=== PATIENT | male | born 1965 | race Caucasian/White ===

== ENCOUNTER 2017-04-07 20:32 | Inpatient (IN) | payer OTHER ==
[~2017-04-07] VITALS: Ht 193 cm; Wt 97.7 kg
[2017-04-07 20:56] LABS: BASO % 1 % (0-3); EOS % 0 % (0-3); HEMATOCRIT 44.4 % (39.0-53.0); HEMOGLOBIN 15.5 g/dL (13.0-17.5); LYMPH # 0.8 x10^3/uL (1.0-4.8); LYMPH % 8 % (24-48); MEAN CORPUSCULAR HEMOGLOBIN 33 pg (25-35); MEAN CORPUSCULAR HGB CONC 35 g/dL (31-37); MEAN CORPUSCULAR VOLUME 94 fL (79-100); MONO % 16 % (0-9); NEUT % 75 % (31-73); PLATELET COUNT 147 x10^3/uL (140-400); RED BLOOD COUNT 4.72 x10^6/uL (4.30-5.70); RED CELL DISTRIBUTION WIDTH 13.6 % (11.5-14.5); WHITE BLOOD COUNT 9.6 x10^3/uL (4.0-11.0)
[2017-04-07 21:01] LABS: BILIRUBIN,URINE NEGATIVE (NEG); GLUCOSE,URINE NEGATIVE (NEG); NITRITE,URINE NEGATIVE (NEG); PH,URINE 7.5; PROTEIN,URINE NEGATIVE (NEG-TRACE); UROBILINOGEN,URINE 0.2 mg/dL (0.2 mg/dL)
[2017-04-07 21:07] LABS: CALCIUM 8.7 mg/dL (8.5-10.1); CREATININE 1.2 mg/dL (0.7-1.3); GFR 63.3; POTASSIUM 3.6 mmol/L (3.5-5.1)
[2017-04-07 21:10] LABS: BACTERIA,URINE 0 /HPF (0-FEW); BARBITURATES NEG (NEG); BENZODIAZEPINES POS (NEG); CANNABINOIDS NEG (NEG); COCAINE NEG (NEG); METHADONE NEG (NEG); OPIATES NEG (NEG); PHENCYCLIDINE NEG (NEG); WBC,URINE 20-40 /HPF (0-4)
[2017-04-07 21:13] LABS: ALBUMIN 3.2 g/dL (3.4-5.0); ALBUMIN/GLOBULIN RATIO 0.8 (1.0-1.7); MAGNESIUM 1.9 mg/dL (1.8-2.4); TOTAL BILIRUBIN 0.8 mg/dL (0.2-1.0); TOTAL PROTEIN 7.1 g/dL (6.4-8.2)
[2017-04-07] MEDS ORDERED: KETOROLAC 30 MG/ML INJ. IV ONE (21:15)
[2017-04-07] MEDS ORDERED: fentaNYL PF VIAL 100 MCG/2 ML VIAL IV ONE (21:15)
[2017-04-07] MEDS ORDERED: diazePAM 5 MG TABLET PO ONE (21:15)
[2017-04-07] MEDS ORDERED: ONDANSETRON PF 4 MG/2 ML VIAL. IV ONE (21:15)
[2017-04-07] MEDS ORDERED: IV NORMAL SALINE 1000ML BAG 1,000 ML IV ONE ×3 (21:15→22:00)
[2017-04-07 21:21] LABS: INR 1.2 (0.8-1.1); PROTHROMBIN TIME PATIENT 14.2 SEC (11.7-14.0)
[2017-04-07] MEDS ORDERED: ONDANSETRON PF 4 MG/2 ML VIAL. IV PRN (21:45)
[2017-04-07 21:49] LABS: OBC FLU VALID
[2017-04-07] MEDS ORDERED: LABETALOL 20 MG/4 ML DISP.SYRIN. IVP ONE (22:15)
[2017-04-07] MEDS ORDERED: CONTRAST GIVEN MC PRN (22:15)
[2017-04-07] MEDS ORDERED: ACETAMINOPHEN 500 MG TABLET PO ONE (22:15)
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
[2017-04-07] MEDS ORDERED: VANCOMYCIN 2 GM in IV NORMAL SALINE 500ML BAG 500 ML IV ONE (22:30)
[2017-04-07] MEDS ORDERED: IOHEXOL 300 MG/ML 75 ML VIAL IV ONE (22:30)
[2017-04-07 23:25] VITALS: BP 126/86
--- NOTE | 2017-04-07 23:44 | RAD ---
INDICATION: Fever and headache COMPARISON: None. TECHNIQUE: Axial CT images obtained through the head without intravenous contrast. One or more of the following individualized dose reduction techniques were utilized for this examination: 1. Automated exposure control; 2. Adjustment of the mA and/or kV according to patient size; 3. Use of iterative reconstruction technique. FINDINGS: No intracranial hemorrhage. No midline shift. Basal cisterns patent. Ventricles and sulci are unremarkable. No acute osseous abnormality. There is some bowing of the nasal septum. 1 cm lucent focus in the calvarium on the right frontally IMPRESSION: 1. No acute intracranial hemorrhage. 2. 1 cm lucent focus within the calvarium on the right frontally. Could be from causes such as a venous structure within the area but if the patient has any risk factors or history of neoplasm a follow-up could be obtained to ensure no growth to ensure there is not a more worrisome cause which is considered less common. Electronically signed by: Javier Madrigal MD (04/07/2017 11:41 PM) [facility]
--- NOTE | 2017-04-07 23:49 | RAD ---
CT ABD PELV W/ IV CONTRST ONLY dated 04/07/2017 10:45 PM Indication: Fever, abdominal pain lower abdominal pain. Comparison: No comparison is available. Technique: Contiguous axial imaging of the abdomen and pelvis performed after the administration of 75 cc Omnipaque 300. One or more of the following individualized dose reduction techniques were utilized for this examination: 1. Automated exposure control 2. Adjustment of the mA and/or kV according to patient size 3. Use of iterative reconstruction technique Findings: Limited images of lung bases are clear. Heart size within normal limits. No pleural or pericardial effusion. Liver, spleen, pancreas, adrenal glands, gallbladder and kidneys are unremarkable. No hydronephrosis. There is a well-defined low-density focus at the upper pole of right kidney that measures 8 mm in size, difficult to accurately characterize. Unopacified GI tract normal in caliber and contour. No focal bowel wall thickening. No inflammatory stranding in the mesentery. The appendix is normal in caliber. No ascites or lymphadenopathy. Moderate amount of stool throughout the colon. Images of pelvis show mild diffuse wall thickening of the urinary bladder. Mild inflammatory stranding in the pelvic fat. Prostate gland is mildly enlarged. No free pelvic fluid or pelvic lymphadenopathy. Bone windows show no acute findings. Multilevel spondylosis. IMPRESSION: 1. No acute abnormality of abdomen or pelvis. 2. Enlarged prostate gland with mild diffuse wall thickening of the urinary bladder. Mild inflammatory stranding in the pelvic fat. Findings are indeterminate and could represent acute or chronic cystitis or intermittent bladder outlet obstruction. Prostatitis is another consideration. 3. Indeterminate small low-density lesion at the upper pole right kidney. Electronically signed by: Juice Brady MD (04/07/2017 11:45 PM) [facility]
[2017-04-08] MEDS ORDERED: ZOLPIDEM 5 MG TABLET. PO PRN
[2017-04-08] MEDS: fentaNYL PF VIAL 100 MCG/2 ML VIAL IV PRN ×2 (00:02→07:59)
[2017-04-08] MEDS ORDERED: MULT1TAB52 PO (01:27)
[2017-04-08] MEDS ORDERED: CLOT15CR4 TP (01:27)
[2017-04-08] MEDS ORDERED: HALO10TA PO (01:27)
[2017-04-08] MEDS ORDERED: THIA100T8 PO (01:27)
[2017-04-08] MEDS ORDERED: QUET100T4 PO (01:27)
[2017-04-08] MEDS ORDERED: DILT60TA3 PO (01:27)
[2017-04-08] MEDS ORDERED: IBUP200T58 PO (01:27)
[2017-04-08] MEDS ORDERED: ASPI-482 PO (01:27)
[2017-04-08 03:01] VITALS: BP 115/83
[2017-04-08] MEDS: VANCOMYCIN PER PHARMACY MC PRN ×2 (03:36→09:04)
[2017-04-08 05:21] LABS: BASO % 0 % (0-3); EOS % 0 % (0-3); HEMOGLOBIN 13.9 g/dL (13.0-17.5); LYMPH # 1.5 x10^3/uL (1.0-4.8); LYMPH % 14 % (24-48); MEAN CORPUSCULAR HEMOGLOBIN 33 pg (25-35); MEAN CORPUSCULAR HGB CONC 36 g/dL (31-37); MEAN CORPUSCULAR VOLUME 93 fL (79-100); MONO % 18 % (0-9); NEUT % 68 % (31-73); PLATELET COUNT 127 x10^3/uL (140-400); RED BLOOD COUNT 4.18 x10^6/uL (4.30-5.70); RED CELL DISTRIBUTION WIDTH 13.6 % (11.5-14.5); WHITE BLOOD COUNT 10.8 x10^3/uL (4.0-11.0)
[2017-04-08] MEDS ORDERED: chlordiazePOXIDE HCL 25 MG CAPSULE PO SCH (06:00)
[2017-04-08 06:07] LABS: CREATININE 1.1 mg/dL (0.7-1.3); POTASSIUM 3.2 mmol/L (3.5-5.1)
[2017-04-08 07:30] VITALS: BP 145/85
--- NOTE | 2017-04-08 07:45 | RAD ---
Chest radiograph 04/07/2017 10:45 PM Indication: Fever, UTI Comparison: None available Technique: Single portable upright frontal view of the chest is provided. Findings: Cardiomediastinal silhouette is within normal limits. Right costophrenic angle is partially excluded. No pleural effusions, pulmonary vascular congestion or pneumothorax. The lungs are clear. Osseous structures are normal. Impression: No acute cardiopulmonary process.
[2017-04-08 07:56] LABS: % EOS 1 % (0-5)
[2017-04-08 07:57] LABS: PLT ESTIMATE DECREASED (ADEQUATE)
--- NOTE | 2017-04-08 07:58 | EKG ---
[facility] [address] [place] [id number] Test Date: 2017-04-07 Test Time: 20:40:43 Pat Name: AIDA MARINO Department: Room: [facility] Gender: M Program Research Specialist: : [id number] Requested By: BLAS CHRISTINE Order Number: [id number] Reading MD: Dickson Cervantes Measurements Intervals [place] Rate: 133 P: -47 MI: 186 QRS: -37 QRSD: 76 T: 3 QT: 254 QTc: 379 Interpretive Statements SINUS TACHYCARDIA Electronically Signed On 04-10-2017 13:10:38 CDT by Dickson Cervantes
[2017-04-08] MEDS ORDERED: FLU VACC QS2017-18 (36MOS+)/PF 0.5 ML SYRINGE. VAX IM ONE (09:00)
[2017-04-08] MEDS ORDERED: INFLUENZA VAX SCREEN BY RX. MC ONE (09:00)
[2017-04-08] MEDS ORDERED: VANCOMYCIN 1.5 GM in IV NORMAL SALINE 500ML BAG 500 ML IV SCH (10:00)
[2017-04-08] MEDS: CLOTRIMAZOLE 1% TOPICAL CREAM 15GM TUBE. TP SCH ×2 (10:00→22:03)
[2017-04-08] MEDS: POLYETHYLENE GLYCOL 3350 17 GM PACKET. PO SCH (10:15)
[2017-04-08 10:30] VITALS: BP 154/101
[2017-04-08] MEDS: THIAMINE 100 MG TABLET. PO SCH (10:41)
[2017-04-08] MEDS: MULTIVITAMIN with MINERAL TABLET. PO SCH (10:42)
[2017-04-08] MEDS: ASPIRIN ENTERIC COATED 81 MG TABLET.DR. PO SCH (10:42)
[2017-04-08] MEDS: dilTIAZem HCL 30 MG TABLET PO SCH ×2 (10:43→22:00)
[2017-04-08] MEDS: HYDROcodone/APAP 5/325MG 1 TAB TABLET PO PRN ×3 (10:46→22:23)
[2017-04-08] MEDS ORDERED: IBUPROFEN 200 MG TABLET. PO SCH (14:00)
[2017-04-08 14:30] VITALS: BP 133/89
[2017-04-08] MEDS: NICOTINE POLACRILEX 2MG GUM PACKAGE of 12. BC PRN ×2 (17:46→22:02)
[2017-04-08] MEDS ORDERED: MAG HYDROX/ALUMINUM HYD/SIMETH 30 ML ORAL.SUSP PO ONE (18:30)
[2017-04-08 19:00] VITALS: BP 163/107
[2017-04-08] MEDS: HALOPERIDOL 5 MG TABLET. PO SCH (22:00)
[2017-04-08] MEDS: QUEtiapine 100 MG TABLET. PO SCH (22:00)
[2017-04-08 23:00] VITALS: BP 129/82
[2017-04-09 03:00] VITALS: BP 126/88
[2017-04-09] MEDS: HYDROcodone/APAP 5/325MG 1 TAB TABLET PO PRN (05:02)
[2017-04-09 05:39] LABS: BASO % 0 % (0-3); EOS % 1 % (0-3); HEMATOCRIT 43.1 % (39.0-53.0); HEMOGLOBIN 15.1 g/dL (13.0-17.5); LYMPH # 1.7 x10^3/uL (1.0-4.8); LYMPH % 14 % (24-48); MEAN CORPUSCULAR HEMOGLOBIN 33 pg (25-35); MEAN CORPUSCULAR HGB CONC 35 g/dL (31-37); MEAN CORPUSCULAR VOLUME 94 fL (79-100); MONO % 11 % (0-9); NEUT % 74 % (31-73); PLATELET COUNT 136 x10^3/uL (140-400); RED CELL DISTRIBUTION WIDTH 13.8 % (11.5-14.5)
[2017-04-09 05:58] LABS: CALCIUM 8.8 mg/dL (8.5-10.1); GFR 78.2; POTASSIUM 4.6 mmol/L (3.5-5.1)
[2017-04-09 07:45] VITALS: BP 141/101
[2017-04-09] MEDS: ASPIRIN ENTERIC COATED 81 MG TABLET.DR. PO SCH (08:30)
[2017-04-09] MEDS: THIAMINE 100 MG TABLET. PO SCH (08:30)
[2017-04-09] MEDS: MULTIVITAMIN with MINERAL TABLET. PO SCH (08:30)
[2017-04-09] MEDS: POLYETHYLENE GLYCOL 3350 17 GM PACKET. PO SCH (08:30)
[2017-04-09] MEDS: IBUPROFEN 200 MG TABLET. PO PRN (08:30)
[2017-04-09] MEDS: dilTIAZem HCL 30 MG TABLET PO SCH ×2 (08:31→21:14)
[2017-04-09] MEDS: CLOTRIMAZOLE 1% TOPICAL CREAM 15GM TUBE. TP SCH ×2 (08:33→21:14)
[2017-04-09] MEDS ORDERED: POLYETHYLENE GLYCOL 3350 17 GM PACKET. PO SCH (09:00)
[2017-04-09 10:30] VITALS: BP 127/78
[2017-04-09] MEDS: NICOTINE POLACRILEX 2MG GUM PACKAGE of 12. BC PRN ×2 (10:49→19:20)
--- NOTE | 2017-04-09 13:48 | PDOC ---
PROGRESS NOTES Chief Complaint Chief Complaint Chills/abd pain Hx of ETOH abuse History of Present Illness History of Present Illness Pt was admitted for fevers and chills and found to have sepsis and started on Rocephin. No acute overnight events. Vital signs are normalizing. Pt in NAD, but reports still having abd pain, switched Lortab to Percocet. Has a hx of alcohol abuse, last reported drink was 03/28/17. CT head: abnormality found that is likely venous in nature, less likely cause could be malignancy. Ct abd: enlarged prostate Vitals Vitals Vital Signs Date Time Temp Pulse Resp B/P (MAP) Pulse Ox O2 Delivery O2 Flow Rate FiO2 04/09/17 10:30 97.9 80 18 127/78 (94) 93 Room Air 97.9 Physical Exam General: Alert, Oriented X3, Cooperative, No acute distress Heart: Regular rate, Normal S1, Normal S2 Lungs: Clear Abdomen: Normal bowel sounds, Soft Extremities: No clubbing, No cyanosis Skin: No rashes, No breakdown Labs LABS Laboratory Tests Test 04/09/17 05:00 White Blood Count 12.0 x10^3/uL (4.0-11.0) Red Blood Count 4.60 x10^6/uL (4.30-5.70) Hemoglobin 15.1 g/dL (13.0-17.5) Hematocrit 43.1 % (39.0-53.0) Mean Corpuscular Volume 94 fL (79-100) Mean Corpuscular Hemoglobin 33 pg (25-35) Mean Corpuscular Hemoglobin Concent 35 g/dL (31-37) Red Cell Distribution Width 13.8 % (11.5-14.5) Platelet Count 136 x10^3/uL (140-400) Neutrophils (%) (Auto) 74 % (31-73) Lymphocytes (%) (Auto) 14 % (24-48) Monocytes (%) (Auto) 11 % (0-9) Eosinophils (%) (Auto) 1 % (0-3) Basophils (%) (Auto) 0 % (0-3) Neutrophils # (Auto) 8.9 x10^3uL (1.8-7.7) Lymphocytes # (Auto) 1.7 x10^3/uL (1.0-4.8) Monocytes # (Auto) 1.3 x10^3/uL (0.0-1.1) Eosinophils # (Auto) 0.1 x10^3/uL (0.0-0.7) Basophils # (Auto) 0.0 x10^3/uL (0.0-0.2) Sodium Level 142 mmol/L (136-145) Potassium Level 4.6 mmol/L (3.5-5.1) Chloride Level 106 mmol/L (98-107) Carbon Dioxide Level 30 mmol/L (21-32) Anion Gap 6 (6-14) Blood Urea Nitrogen 6 mg/dL (8-26) Creatinine 1.0 mg/dL (0.7-1.3) Estimated GFR (Cockcroft-Gault) 78.2 Glucose Level 96 mg/dL (70-99) Calcium Level 8.8 mg/dL (8.5-10.1) Review of Systems Review of Systems Complains of abd pain Complains of DAVIS Assessment and Plan Assessmemt and Plan Problems Medical Problems: (1) Elevated C-reactive protein Status: Acute (2) Hypertension Status: Acute (3) UTI (urinary tract infection) Status: Acute Sepsis: Blood Cx NGTD 1d. Vitals normalizing, was tachycardic, febrile, and hypertensive on admit. Continue Rocephin. Mild malnutrition POA: Albumin 3.2 Insomnia: Continue Ambien Continue CIWA PT/OT Dispo: Prob DC to home tomorrow Problems: Comment Review of Relevant I have reviewed the following items francoise (where applicable) has been applied. Labs Laboratory Tests Test 04/07/17 20:35 04/07/17 20:40 04/07/17 21:19 04/07/17 23:40 Urine Collection Type Unknown Urine Color Yellow Urine Clarity Clear Urine pH 7.5 Urine Specific [place] <=1.005 Urine Protein Negative mg/dL (NEG-TRACE) Urine Glucose (UA) Negative mg/dL (NEG) Urine Ketones (Stick) Negative mg/dL (NEG) Urine Blood Small (NEG) Urine Nitrite Negative (NEG) Urine Bilirubin Negative (NEG) Urine Urobilinogen Dipstick 0.2 mg/dL (0.2 mg/dL) Urine Leukocyte Esterase Large (NEG) Urine RBC 6-10 /HPF (0-2) Urine WBC 20-40 /HPF (0-4) Urine Squamous Epithelial Cells None /LPF Urine Bacteria 0 /HPF (0-FEW) Urine Opiates Screen Neg (NEG) Urine Methadone Screen Neg (NEG) Urine Barbiturates Neg (NEG) Urine Phencyclidine Screen Neg (NEG) Urine Amphetamine/Methamphetamine Neg (NEG) Urine Benzodiazepines Screen Pos (NEG) Urine Cocaine Screen Neg (NEG) Urine Cannabinoids Screen Neg (NEG) Urine Ethyl Alcohol Neg (NEG) White Blood Count 9.6 x10^3/uL (4.0-11.0) Red Blood Count 4.72 x10^6/uL (4.30-5.70) Hemoglobin 15.5 g/dL (13.0-17.5) Hematocrit 44.4 % (39.0-53.0) Mean Corpuscular Volume 94 fL (79-100) Mean Corpuscular Hemoglobin 33 pg (25-35) Mean Corpuscular Hemoglobin Concent 35 g/dL (31-37) Red Cell Distribution Width 13.6 % (11.5-14.5) Platelet Count 147 x10^3/uL (140-400) Neutrophils (%) (Auto) 75 % (31-73) Lymphocytes (%) (Auto) 8 % (24-48) Monocytes (%) (Auto) 16 % (0-9) Eosinophils (%) (Auto) 0 % (0-3) Basophils (%) (Auto) 1 % (0-3) Neutrophils # (Auto) 7.2 x10^3uL (1.8-7.7) Lymphocytes # (Auto) 0.8 x10^3/uL (1.0-4.8) Monocytes # (Auto) 1.5 x10^3/uL (0.0-1.1) Eosinophils # (Auto) 0.0 x10^3/uL (0.0-0.7) Basophils # (Auto) 0.0 x10^3/uL (0.0-0.2) Erythrocyte Sedimentation Rate 4 (0-15) Prothrombin Time 14.2 SEC (11.7-14.0) Prothromb Time International Ratio 1.2 (0.8-1.1) Activated Partial Thromboplast Time 33 SEC (24-38) Sodium Level 141 mmol/L (136-145) Potassium Level 3.6 mmol/L (3.5-5.1) Chloride Level 105 mmol/L (98-107) Carbon Dioxide Level 28 mmol/L (21-32) Anion Gap 8 (6-14) Blood Urea Nitrogen 14 mg/dL (8-26) Creatinine 1.2 mg/dL (0.7-1.3) Estimated GFR (Cockcroft-Gault) 63.3 BUN/Creatinine Ratio 12 (6-20) Glucose Level 145 mg/dL (70-99) Lactic Acid Level 1.9 mmol/L (0.4-2.0) Calcium Level 8.7 mg/dL (8.5-10.1) Magnesium Level 1.9 mg/dL (1.8-2.4) Total Bilirubin 0.8 mg/dL (0.2-1.0) Aspartate Amino Transf (AST/SGOT) 65 U/L (15-37) Alanine Aminotransferase (ALT/SGPT) 131 U/L (16-63) Alkaline Phosphatase 90 U/L (46-116) Creatine Kinase 34 U/L (39-308) Troponin I Quantitative 0.018 ng/mL (0.000-0.055) C-Reactive Protein, Quantitative 22.0 mg/L (0-3.3) UU-Zwp-M-Type Natriuretic Peptide 256 pg/mL (0-124) Total Protein 7.1 g/dL (6.4-8.2) Albumin 3.2 g/dL (3.4-5.0) Albumin/Globulin Ratio 0.8 (1.0-1.7) Thyroid Stimulating Hormone (TSH) 1.890 uIU/mL (0.358-3.74) Ethyl Alcohol Level < 10 mg/dL (0-10) Influenza Type A Antigen Negative (NEGATIVE) Influenza Type B Antigen Negative (NEGATIVE) Nasal Screen MRSA (PCR) Negative (Negative) Test 04/08/17 04:45 04/09/17 05:00 White Blood Count 10.8 x10^3/uL (4.0-11.0) 12.0 x10^3/uL (4.0-11.0) Red Blood Count 4.18 x10^6/uL (4.30-5.70) 4.60 x10^6/uL (4.30-5.70) Hemoglobin 13.9 g/dL (13.0-17.5) 15.1 g/dL (13.0-17.5) Hematocrit 39.0 % (39.0-53.0) 43.1 % (39.0-53.0) Mean Corpuscular Volume 93 fL (79-100) 94 fL (79-100) Mean Corpuscular Hemoglobin 33 pg (25-35) 33 pg (25-35) Mean Corpuscular Hemoglobin Concent 36 g/dL (31-37) 35 g/dL (31-37) Red Cell Distribution Width 13.6 % (11.5-14.5) 13.8 % (11.5-14.5) Platelet Count 127 x10^3/uL (140-400) 136 x10^3/uL (140-400) Neutrophils (%) (Auto) 68 % (31-73) 74 % (31-73) Lymphocytes (%) (Auto) 14 % (24-48) 14 % (24-48) Monocytes (%) (Auto) 18 % (0-9) 11 % (0-9) Eosinophils (%) (Auto) 0 % (0-3) 1 % (0-3) Basophils (%) (Auto) 0 % (0-3) 0 % (0-3) Neutrophils # (Auto) 7.3 x10^3uL (1.8-7.7) 8.9 x10^3uL (1.8-7.7) Lymphocytes # (Auto) 1.5 x10^3/uL (1.0-4.8) 1.7 x10^3/uL (1.0-4.8) Monocytes # (Auto) 1.9 x10^3/uL (0.0-1.1) 1.3 x10^3/uL (0.0-1.1) Eosinophils # (Auto) 0.0 x10^3/uL (0.0-0.7) 0.1 x10^3/uL (0.0-0.7) Basophils # (Auto) 0.0 x10^3/uL (0.0-0.2) 0.0 x10^3/uL (0.0-0.2) Segmented Neutrophils % 64 % (35-66) Band Neutrophils % 8 % (0-9) Lymphocytes % 19 % (24-48) Monocytes % 8 % (0-10) Eosinophils % 1 % (0-5) Platelet Estimate Decreased (ADEQUATE) Sodium Level 143 mmol/L (136-145) 142 mmol/L (136-145) Potassium Level 3.2 mmol/L (3.5-5.1) 4.6 mmol/L (3.5-5.1) Chloride Level 110 mmol/L (98-107) 106 mmol/L (98-107) Carbon Dioxide Level 26 mmol/L (21-32) 30 mmol/L (21-32) Anion Gap 7 (6-14) 6 (6-14) Blood Urea Nitrogen 13 mg/dL (8-26) 6 mg/dL (8-26) Creatinine 1.1 mg/dL (0.7-1.3) 1.0 mg/dL (0.7-1.3) Estimated GFR (Cockcroft-Gault) 70.0 78.2 Glucose Level 109 mg/dL (70-99) 96 mg/dL (70-99) Calcium Level 8.0 mg/dL (8.5-10.1) 8.8 mg/dL (8.5-10.1) Laboratory Tests Test 04/09/17 05:00 White Blood Count 12.0 x10^3/uL (4.0-11.0) Red Blood Count 4.60 x10^6/uL (4.30-5.70) Hemoglobin 15.1 g/dL (13.0-17.5) Hematocrit 43.1 % (39.0-53.0) Mean Corpuscular Volume 94 fL (79-100) Mean Corpuscular Hemoglobin 33 pg (25-35) Mean Corpuscular Hemoglobin Concent 35 g/dL (31-37) Red Cell Distribution Width 13.8 % (11.5-14.5) Platelet Count 136 x10^3/uL (140-400) Neutrophils (%) (Auto) 74 % (31-73) Lymphocytes (%) (Auto) 14 % (24-48) Monocytes (%) (Auto) 11 % (0-9) Eosinophils (%) (Auto) 1 % (0-3) Basophils (%) (Auto) 0 % (0-3) Neutrophils # (Auto) 8.9 x10^3uL (1.8-7.7) Lymphocytes # (Auto) 1.7 x10^3/uL (1.0-4.8) Monocytes # (Auto) 1.3 x10^3/uL (0.0-1.1) Eosinophils # (Auto) 0.1 x10^3/uL (0.0-0.7) Basophils # (Auto) 0.0 x10^3/uL (0.0-0.2) Sodium Level 142 mmol/L (136-145) Potassium Level 4.6 mmol/L (3.5-5.1) Chloride Level 106 mmol/L (98-107) Carbon Dioxide Level 30 mmol/L (21-32) Anion Gap 6 (6-14) Blood Urea Nitrogen 6 mg/dL (8-26) Creatinine 1.0 mg/dL (0.7-1.3) Estimated GFR (Cockcroft-Gault) 78.2 Glucose Level 96 mg/dL (70-99) Calcium Level 8.8 mg/dL (8.5-10.1) Microbiology 04/08/17 Blood Culture - Preliminary, Resulted NO GROWTH AFTER 1 DAY 04/07/17 Urine Culture - Final, Complete 04/07/17 Urine Culture Result 1 (NOAH) - Final, Complete 04/07/17 Antimicrobic Susceptibility - Final, Complete Medications Current Medications Ondansetron HCl (Zofran) 4 mg 1X ONCE IV Last administered on 04/07/17 21:13 ; Start 04/07/17 at 21:15; Stop 04/07/17 at 21:16; Status DC Ketorolac Tromethamine (Toradol) 30 mg 1X ONCE IV Last administered on 21:13; Start 04/07/17 at 21:15; Stop 04/07/17 at 21:16; Status DC Sodium Chloride 1,000 ml @ 1,000 mls/hr 1X ONCE IV Last administered on 21:11; Start 04/07/17 at 21:15; Stop 04/07/17 at 22:14; Status DC Fentanyl Citrate (Fentanyl 2ml Vial) 75 mcg 1X ONCE IV Last administered on 21:13; Start 04/07/17 at 21:15; Stop 04/07/17 at 21:16; Status DC Diazepam (Valium) 5 mg 1X ONCE PO Last administered on 04/07/17 21:13; Start 04/07/17 at 21:15; Stop 04/07/17 at 21:16; Status DC Ceftriaxone Sodium 2 gm/ Sodium Chloride 100 ml @ 200 mls/hr Q24H IV Last administered on 04/08/17 21:58; Start 04/07/17 at 21:30 Ceftriaxone Sodium 50 ml @ 100 mls/hr 1X ONCE IV ; Start 04/07/17 at 21:15; Stop 04/07/17 at 21:44; Status Cancel Sodium Chloride 1,000 ml @ 1,000 mls/hr 1X ONCE IV Last administered on 22:17; Start 04/07/17 at 21:45; Stop 04/07/17 at 22:44; Status DC Vancomycin HCl (Vanco Per Pharmacy) 1 each PRN DAILY PRN MC SEE COMMENTS Last administered on 04/08/17 09:04; Start 04/07/17 at 21:45; Stop 04/08/17 at 10:16 ; Status DC Lorazepam (Ativan) 2 mg 1X ONCE IV Last administered on 04/07/17 22:18; Start 04/07/17 at 22:15; Stop 04/07/17 at 22:16; Status DC Labetalol HCl (Normodyne) 20 mg 1X ONCE IVP Last administered on 04/07/17 22: 17; Start 04/07/17 at 22:15; Stop 04/07/17 at 22:16; Status DC Ondansetron HCl (Zofran) 4 mg PRN Q8HRS PRN IV NAUSEA/VOMITING; Start 04/07/17 at 21:45; Stop 04/08/17 at 10:16; Status DC Fentanyl Citrate (Fentanyl 2ml Vial) 50 mcg PRN Q2HR PRN IV SEVERE PAIN Last administered on 04/08/17 07:59; Start 04/07/17 at 21:45; Stop 04/08/17 at 10:16 ; Status DC Acetaminophen (Tylenol) 1,000 mg 1X ONCE PO Last administered on 04/07/17 23: 39; Start 04/07/17 at 22:15; Stop 04/07/17 at 22:16; Status DC Sodium Chloride 1,000 ml @ 125 mls/hr 1X ONCE IV Last administered on 02:12; Start 04/07/17 at 22:00; Stop 04/08/17 at 05:59; Status DC Vancomycin HCl 2 gm/Sodium Chloride 500 ml @ 250 mls/hr 1X ONCE IV Last administered on 04/07/17 22:16; Start 04/07/17 at 22:30; Stop 04/08/17 at 00:29 ; Status DC Iohexol (Omnipaque 300 Mg/ml) 75 ml 1X ONCE IV Last administered on 04/07/17 22:40; Start 04/07/17 at 22:30; Stop 04/07/17 at 22:31; Status DC Info (Do NOT chart on this entry -- for MONITORING) 1 each PRN DAILY PRN MC SEE COMMENTS; Start 04/07/17 at 22:15; Stop 04/09/17 at 22:14 Zolpidem Tartrate (Ambien) 5 mg PRN QHS PRN PO INSOMNIA Last administered on 00:02; Start 04/08/17 at 00:00 Lorazepam (Ativan) 0.5 mg PRN Q8HRS PRN PO ANXIETY / AGITATION; Start 04/08/17 at 00:00 Info (Do NOT chart on this placeholder) 1 each 1X ONCE MC ; Start 04/08/17 at 09:00; Stop 04/08/17 at 09:01; Status UNV Influenza Virus Vaccine Quadrival (Fluarix Quad [id number] Syringe) 0.5 ml ONCE ONCE VAX IM ; Start 04/08/17 at 09:00; Stop 04/08/17 at 09:08; Status DC Vancomycin HCl 1.5 gm/Sodium Chloride 500 ml @ 250 mls/hr Q12H IV Last administered on 04/08/17 09:40; Start 04/08/17 at 10:00; Stop 04/08/17 at 10:15 ; Status DC Vancomycin HCl 1 each 1X ONCE MC ; Start 04/09/17 at 09:30; Stop 04/09/17 at 09 :30; Status DC Chlordiazepoxide (Librium) 25 mg Q6H PO Last administered on 04/08/17 06:07; Start 04/08/17 at 06:00; Stop 04/08/17 at 10:15; Status DC Polyethylene Glycol (miraLAX PACKET) 17 gm DAILY PO ; Start 04/09/17 at 09:00; Stop 04/09/17 at 09:00; Status DC Aspirin (Ecotrin) 81 mg DAILY PO Last administered on 04/09/17 08:30; Start at 10:30 Clotrimazole (Lotrimin) 1 karla BID TP Last administered on 04/09/17 08:33; Start 04/08/17 at 10:00 Ibuprofen (Motrin) 200 mg Q8HRS PO ; Start 04/08/17 at 14:00; Stop 04/08/17 at 14:00; Status DC Quetiapine Fumarate (SEROquel) 100 mg QHS PO Last administered on 04/08/17 22: 00; Start 04/08/17 at 21:00 Diltiazem HCl (Cardizem) 60 mg BID PO Last administered on 04/09/17 08:31; Start 04/08/17 at 10:30 Haloperidol (Haldol) 10 mg HS PO Last administered on 04/08/17 22:00; Start at 21:00 Multivitamins (Thera M Plus) 1 tab DAILY PO Last administered on 04/09/17 08: 30; Start 04/08/17 at 10:30 Thiamine Mononitrate (Vitamin B-1) 100 mg DAILY PO Last administered on 08:30; Start 04/08/17 at 10:30 Polyethylene Glycol (miraLAX PACKET) 17 gm DAILY PO Last administered on 08:30; Start 04/08/17 at 10:15 Acetaminophen/ Hydrocodone Bitart (Lortab 5/325) 1 tab PRN Q4HRS PRN PO PAIN Last administered on 04/09/17 05:02; Start 04/08/17 at 10:15 Ibuprofen (Motrin) 200 mg PRN Q8HRS PRN PO PAIN Last administered on 04/09/17 08:30; Start 04/08/17 at 10:30 Nicotine Polacrilex (Nicorette Gum) 1 each PRN Q1HR PRN BC SMOKING CESSATION Last administered on 04/09/17 10:49; Start 04/08/17 at 17:30 Al Hydroxide/Mg Hydroxide (Mylanta Plus Xs) 30 ml 1X ONCE PO Last administered on 04/08/17t 18:39; Start 04/08/17 at 18:30; Stop 04/08/17 at 18:31 ; Status DC Active Scripts Active Reported Cardizem Tablet (Diltiazem Hcl) 60 Mg Tablet 60 Mg PO BID Seroquel (Quetiapine Fumarate) 100 Mg Tablet 1 Tab PO QHS Haloperidol 10 Mg Tablet 1 Tab PO QHS Clotrimazole 15 Gm Cream..g. 1 Karla TP BID Multivitamins (Multivitamin) 1 Each Tablet 1 Tab PO DAILY Thiamine Hcl 100 Mg Tablet 100 Mg PO DAILY Advil (Ibuprofen) 200 Mg Tablet 200 Mg PO Q8HRS PRN Aspir 81 (Aspirin) 81 Mg Tablet. 1 Tab PO DAILY Vitals/I & O Vital Sign - Last 24 Hours 04/08/17 04/08/17 04/08/17 04/08/17 14:30 17:53 19:00 20:00 Temp 98.8 99.2 98.8 99.2 Pulse 86 91 Resp 18 20 B/P (MAP) 133/89 (104) 163/107 (125) Pulse Ox 95 95 O2 Delivery Room Air Room Air Room Air Room Air 04/08/17 04/08/17 04/08/17 04/09/17 22:00 22:23 23:00 03:00 Temp 100.2 98.6 100.2 98.6 Pulse 91 92 89 Resp 20 20 20 B/P (MAP) 163/107 129/82 (98) 126/88 (101) Pulse Ox 95 93 94 O2 Delivery Room Air Room Air Room Air 04/09/17 04/09/17 04/09/17 04/09/17 05:02 06:02 07:45 07:50 Temp 98.8 98.8 Pulse 91 Resp 20 18 18 B/P (MAP) 141/101 (114) Pulse Ox 94 94 96 O2 Delivery Room Air Room Air Room Air Room Air 04/09/17 04/09/17 08:31 10:30 Temp 97.9 97.9 Pulse 89 80 Resp 18 B/P (MAP) 126/88 127/78 (94) Pulse Ox 93 O2 Delivery Room Air Intake and Output 04/09/17 04/09/17 04/10/17 15:00 23:00 07:00 Intake Total 600 ml Balance 600 ml CASTLE,NIAL K III DO Apr 09, 2017 13:48
[2017-04-09] MEDS: oxyCODONE/APAP 5/325 1 TAB TABLET PO PRN ×2 (14:12→18:40)
[2017-04-09] MEDS: LORazepam 0.5 MG TABLET PO PRN (14:12)
[2017-04-09 14:30] VITALS: BP 137/101
[2017-04-09 19:00] VITALS: BP 160/107
[2017-04-09] MEDS: QUEtiapine 100 MG TABLET. PO SCH (21:13)
[2017-04-09] MEDS: HALOPERIDOL 5 MG TABLET. PO SCH (21:14)
[2017-04-09 22:59] VITALS: BP 160/95
[2017-04-10 03:00] VITALS: BP 134/93
[2017-04-10] MEDS: IBUPROFEN 200 MG TABLET. PO PRN (03:58)
[2017-04-10 04:50] LABS: BASO % 1 % (0-3); EOS % 1 % (0-3); HEMATOCRIT 42.3 % (39.0-53.0); HEMOGLOBIN 14.4 g/dL (13.0-17.5); LYMPH # 1.1 x10^3/uL (1.0-4.8); LYMPH % 13 % (24-48); MEAN CORPUSCULAR HEMOGLOBIN 32 pg (25-35); MEAN CORPUSCULAR HGB CONC 34 g/dL (31-37); MEAN CORPUSCULAR VOLUME 94 fL (79-100); MONO % 9 % (0-9); NEUT % 76 % (31-73); PLATELET COUNT 142 x10^3/uL (140-400); RED BLOOD COUNT 4.48 x10^6/uL (4.30-5.70); RED CELL DISTRIBUTION WIDTH 13.2 % (11.5-14.5)
[2017-04-10 05:01] LABS: CALCIUM 8.5 mg/dL (8.5-10.1); GFR 78.2; POTASSIUM 3.8 mmol/L (3.5-5.1)
[2017-04-10 07:00] VITALS: BP 133/95
[2017-04-10] MEDS: NICOTINE POLACRILEX 2MG GUM PACKAGE of 12. BC PRN ×2 (07:43→20:44)
[2017-04-10] MEDS: THIAMINE 100 MG TABLET. PO SCH (07:44)
[2017-04-10] MEDS: MULTIVITAMIN with MINERAL TABLET. PO SCH (07:44)
[2017-04-10] MEDS: POLYETHYLENE GLYCOL 3350 17 GM PACKET. PO SCH (07:45)
[2017-04-10] MEDS: ASPIRIN ENTERIC COATED 81 MG TABLET.DR. PO SCH (07:45)
[2017-04-10] MEDS: dilTIAZem HCL 30 MG TABLET PO SCH ×2 (07:45→20:45)
[2017-04-10] MEDS: CLOTRIMAZOLE 1% TOPICAL CREAM 15GM TUBE. TP SCH ×2 (07:46→20:49)
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
[2017-04-10] MEDS: CIPROFLOXACIN HCL 250 MG TABLET. PO SCH ×2 (10:19→20:46)
[2017-04-10] MEDS: oxyCODONE/APAP 5/325 1 TAB TABLET PO PRN ×3 (10:20→19:33)
[2017-04-10 11:00] VITALS: BP 116/81
[2017-04-10] MEDS ORDERED: BISACODYL 10 MG SUPP.RECT. PR PRN (13:45)
[2017-04-10] MEDS ORDERED: MAGNESIUM HYDROXIDE 2,400 MG/30 ML ORAL.SUSP. PO PRN (13:45)
[2017-04-10] MEDS: OXYBUTYNIN CHLORIDE 5 MG TABLET PO SCH ×2 (14:30→20:46)
[2017-04-10 15:00] VITALS: BP 128/80
--- NOTE | 2017-04-10 15:25 | PDOC ---
PROGRESS NOTES Chief Complaint Chief Complaint Chills/abd pain 2/2 UTI likely,chronic cystitis vs. prostatitis ucx + MRSA Hx of ETOH abuse CONSTipation SIRS, not sepsis HTN H/O hep C BPH alcoholism homecide, suicide history, from [facility] plan: dc ceftriaxone add cipro add oxybutinyn on percocet add stool softner I got a phone call from Cheyanne Salinas working at [facility] [employer] at 4pm., phone number . She told me that pt has recent homocidal and suicidal behavior and was admitted to [facility] psych inpt facility recently. [facility] transferred him to and eventually came here , however, they didnot notify the court or the skilled nursing. So, i was told that 2 policemen are coming to [facility] now to watch him. i called Mary the nurse at the floor to get biosecurity officer to watch him for now. History of Present Illness History of Present Illness still dysuria, frequency urination, h/o UTI CT head: abnormality found that is likely venous in nature, less likely cause could be malignancy. Ct abd: enlarged prostate ROS: no chills, sob, chest pain T 100.9 last night Vitals Vitals Vital Signs Date Time Temp Pulse Resp B/P (MAP) Pulse Ox O2 Delivery O2 Flow Rate FiO2 04/10/17 14:30 Room Air 04/10/17 11:00 97.5 96 18 116/81 (93) 95 97.5 Physical Exam General: Alert, Oriented X3, Cooperative, No acute distress Heart: Regular rate, Normal S1, Normal S2 Lungs: Clear Abdomen: Normal bowel sounds, Soft Extremities: No clubbing, No cyanosis Skin: No rashes, No breakdown Labs LABS Laboratory Tests Test 04/10/17 03:30 White Blood Count 8.0 x10^3/uL (4.0-11.0) Red Blood Count 4.48 x10^6/uL (4.30-5.70) Hemoglobin 14.4 g/dL (13.0-17.5) Hematocrit 42.3 % (39.0-53.0) Mean Corpuscular Volume 94 fL (79-100) Mean Corpuscular Hemoglobin 32 pg (25-35) Mean Corpuscular Hemoglobin Concent 34 g/dL (31-37) Red Cell Distribution Width 13.2 % (11.5-14.5) Platelet Count 142 x10^3/uL (140-400) Neutrophils (%) (Auto) 76 % (31-73) Lymphocytes (%) (Auto) 13 % (24-48) Monocytes (%) (Auto) 9 % (0-9) Eosinophils (%) (Auto) 1 % (0-3) Basophils (%) (Auto) 1 % (0-3) Neutrophils # (Auto) 6.0 x10^3uL (1.8-7.7) Lymphocytes # (Auto) 1.1 x10^3/uL (1.0-4.8) Monocytes # (Auto) 0.7 x10^3/uL (0.0-1.1) Eosinophils # (Auto) 0.1 x10^3/uL (0.0-0.7) Basophils # (Auto) 0.0 x10^3/uL (0.0-0.2) Sodium Level 142 mmol/L (136-145) Potassium Level 3.8 mmol/L (3.5-5.1) Chloride Level 105 mmol/L (98-107) Carbon Dioxide Level 32 mmol/L (21-32) Anion Gap 5 (6-14) Blood Urea Nitrogen 9 mg/dL (8-26) Creatinine 1.0 mg/dL (0.7-1.3) Estimated GFR (Cockcroft-Gault) 78.2 Glucose Level 103 mg/dL (70-99) Calcium Level 8.5 mg/dL (8.5-10.1) Assessment and Plan Assessmemt and Plan Problems Medical Problems: (1) Elevated C-reactive protein Status: Acute (2) Hypertension Status: Acute (3) UTI (urinary tract infection) Status: Acute Problems: Comment Review of Relevant I have reviewed the following items francoise (where applicable) has been applied. Labs Laboratory Tests Test 04/09/17 05:00 04/10/17 03:30 White Blood Count 12.0 x10^3/uL (4.0-11.0) 8.0 x10^3/uL (4.0-11.0) Red Blood Count 4.60 x10^6/uL (4.30-5.70) 4.48 x10^6/uL (4.30-5.70) Hemoglobin 15.1 g/dL (13.0-17.5) 14.4 g/dL (13.0-17.5) Hematocrit 43.1 % (39.0-53.0) 42.3 % (39.0-53.0) Mean Corpuscular Volume 94 fL (79-100) 94 fL (79-100) Mean Corpuscular Hemoglobin 33 pg (25-35) 32 pg (25-35) Mean Corpuscular Hemoglobin Concent 35 g/dL (31-37) 34 g/dL (31-37) Red Cell Distribution Width 13.8 % (11.5-14.5) 13.2 % (11.5-14.5) Platelet Count 136 x10^3/uL (140-400) 142 x10^3/uL (140-400) Neutrophils (%) (Auto) 74 % (31-73) 76 % (31-73) Lymphocytes (%) (Auto) 14 % (24-48) 13 % (24-48) Monocytes (%) (Auto) 11 % (0-9) 9 % (0-9) Eosinophils (%) (Auto) 1 % (0-3) 1 % (0-3) Basophils (%) (Auto) 0 % (0-3) 1 % (0-3) Neutrophils # (Auto) 8.9 x10^3uL (1.8-7.7) 6.0 x10^3uL (1.8-7.7) Lymphocytes # (Auto) 1.7 x10^3/uL (1.0-4.8) 1.1 x10^3/uL (1.0-4.8) Monocytes # (Auto) 1.3 x10^3/uL (0.0-1.1) 0.7 x10^3/uL (0.0-1.1) Eosinophils # (Auto) 0.1 x10^3/uL (0.0-0.7) 0.1 x10^3/uL (0.0-0.7) Basophils # (Auto) 0.0 x10^3/uL (0.0-0.2) 0.0 x10^3/uL (0.0-0.2) Sodium Level 142 mmol/L (136-145) 142 mmol/L (136-145) Potassium Level 4.6 mmol/L (3.5-5.1) 3.8 mmol/L (3.5-5.1) Chloride Level 106 mmol/L (98-107) 105 mmol/L (98-107) Carbon Dioxide Level 30 mmol/L (21-32) 32 mmol/L (21-32) Anion Gap 6 (6-14) 5 (6-14) Blood Urea Nitrogen 6 mg/dL (8-26) 9 mg/dL (8-26) Creatinine 1.0 mg/dL (0.7-1.3) 1.0 mg/dL (0.7-1.3) Estimated GFR (Cockcroft-Gault) 78.2 78.2 Glucose Level 96 mg/dL (70-99) 103 mg/dL (70-99) Calcium Level 8.8 mg/dL (8.5-10.1) 8.5 mg/dL (8.5-10.1) Laboratory Tests Test 04/10/17 03:30 White Blood Count 8.0 x10^3/uL (4.0-11.0) Red Blood Count 4.48 x10^6/uL (4.30-5.70) Hemoglobin 14.4 g/dL (13.0-17.5) Hematocrit 42.3 % (39.0-53.0) Mean Corpuscular Volume 94 fL (79-100) Mean Corpuscular Hemoglobin 32 pg (25-35) Mean Corpuscular Hemoglobin Concent 34 g/dL (31-37) Red Cell Distribution Width 13.2 % (11.5-14.5) Platelet Count 142 x10^3/uL (140-400) Neutrophils (%) (Auto) 76 % (31-73) Lymphocytes (%) (Auto) 13 % (24-48) Monocytes (%) (Auto) 9 % (0-9) Eosinophils (%) (Auto) 1 % (0-3) Basophils (%) (Auto) 1 % (0-3) Neutrophils # (Auto) 6.0 x10^3uL (1.8-7.7) Lymphocytes # (Auto) 1.1 x10^3/uL (1.0-4.8) Monocytes # (Auto) 0.7 x10^3/uL (0.0-1.1) Eosinophils # (Auto) 0.1 x10^3/uL (0.0-0.7) Basophils # (Auto) 0.0 x10^3/uL (0.0-0.2) Sodium Level 142 mmol/L (136-145) Potassium Level 3.8 mmol/L (3.5-5.1) Chloride Level 105 mmol/L (98-107) Carbon Dioxide Level 32 mmol/L (21-32) Anion Gap 5 (6-14) Blood Urea Nitrogen 9 mg/dL (8-26) Creatinine 1.0 mg/dL (0.7-1.3) Estimated GFR (Cockcroft-Gault) 78.2 Glucose Level 103 mg/dL (70-99) Calcium Level 8.5 mg/dL (8.5-10.1) Microbiology 04/08/17 Blood Culture - Preliminary, Resulted NO GROWTH AFTER 2 DAYS 04/07/17 Urine Culture - Final, Complete 04/07/17 Urine Culture Result 1 (NOAH) - Final, Complete 04/07/17 Antimicrobic Susceptibility - Final, Complete Medications Current Medications Ondansetron HCl (Zofran) 4 mg 1X ONCE IV Last administered on 04/07/17 21:13 ; Start 04/07/17 at 21:15; Stop 04/07/17 at 21:16; Status DC Ketorolac Tromethamine (Toradol) 30 mg 1X ONCE IV Last administered on 21:13; Start 04/07/17 at 21:15; Stop 04/07/17 at 21:16; Status DC Sodium Chloride 1,000 ml @ 1,000 mls/hr 1X ONCE IV Last administered on 21:11; Start 04/07/17 at 21:15; Stop 04/07/17 at 22:14; Status DC Fentanyl Citrate (Fentanyl 2ml Vial) 75 mcg 1X ONCE IV Last administered on 21:13; Start 04/07/17 at 21:15; Stop 04/07/17 at 21:16; Status DC Diazepam (Valium) 5 mg 1X ONCE PO Last administered on 04/07/17 21:13; Start 04/07/17 at 21:15; Stop 04/07/17 at 21:16; Status DC Ceftriaxone Sodium 2 gm/ Sodium Chloride 100 ml @ 200 mls/hr Q24H IV Last administered on 04/09/17 21:14; Start 04/07/17 at 21:30; Stop 04/10/17 at 13:36 ; Status DC Ceftriaxone Sodium 50 ml @ 100 mls/hr 1X ONCE IV ; Start 04/07/17 at 21:15; Stop 04/07/17 at 21:44; Status Cancel Sodium Chloride 1,000 ml @ 1,000 mls/hr 1X ONCE IV Last administered on 22:17; Start 04/07/17 at 21:45; Stop 04/07/17 at 22:44; Status DC Vancomycin HCl (Vanco Per Pharmacy) 1 each PRN DAILY PRN MC SEE COMMENTS Last administered on 04/08/17 09:04; Start 04/07/17 at 21:45; Stop 04/08/17 at 10:16 ; Status DC Lorazepam (Ativan) 2 mg 1X ONCE IV Last administered on 04/07/17 22:18; Start 04/07/17 at 22:15; Stop 04/07/17 at 22:16; Status DC Labetalol HCl (Normodyne) 20 mg 1X ONCE IVP Last administered on 04/07/17 22: 17; Start 04/07/17 at 22:15; Stop 04/07/17 at 22:16; Status DC Ondansetron HCl (Zofran) 4 mg PRN Q8HRS PRN IV NAUSEA/VOMITING; Start 04/07/17 at 21:45; Stop 04/08/17 at 10:16; Status DC Fentanyl Citrate (Fentanyl 2ml Vial) 50 mcg PRN Q2HR PRN IV SEVERE PAIN Last administered on 04/08/17 07:59; Start 04/07/17 at 21:45; Stop 04/08/17 at 10:16 ; Status DC Acetaminophen (Tylenol) 1,000 mg 1X ONCE PO Last administered on 04/07/17 23: 39; Start 04/07/17 at 22:15; Stop 04/07/17 at 22:16; Status DC Sodium Chloride 1,000 ml @ 125 mls/hr 1X ONCE IV Last administered on 02:12; Start 04/07/17 at 22:00; Stop 04/08/17 at 05:59; Status DC Vancomycin HCl 2 gm/Sodium Chloride 500 ml @ 250 mls/hr 1X ONCE IV Last administered on 04/07/17 22:16; Start 04/07/17 at 22:30; Stop 04/08/17 at 00:29 ; Status DC Iohexol (Omnipaque 300 Mg/ml) 75 ml 1X ONCE IV Last administered on 04/07/17 22:40; Start 04/07/17 at 22:30; Stop 04/07/17 at 22:31; Status DC Info (Do NOT chart on this entry -- for MONITORING) 1 each PRN DAILY PRN MC SEE COMMENTS; Start 04/07/17 at 22:15; Stop 04/09/17 at 22:14; Status DC Zolpidem Tartrate (Ambien) 5 mg PRN QHS PRN PO INSOMNIA Last administered on 00:02; Start 04/08/17 at 00:00 Lorazepam (Ativan) 0.5 mg PRN Q8HRS PRN PO ANXIETY / AGITATION Last administered on 04/09/17 14:12; Start 04/08/17 at 00:00 Info (Do NOT chart on this placeholder) 1 each 1X ONCE MC ; Start 04/08/17 at 09:00; Stop 04/08/17 at 09:01; Status UNV Influenza Virus Vaccine Quadrival (Fluarix Quad [id number] Syringe) 0.5 ml ONCE ONCE VAX IM Last administered on 04/09/17 21:16; Start 04/08/17 at 09:00; Stop 04/08/17 at 09:08; Status DC Vancomycin HCl 1.5 gm/Sodium Chloride 500 ml @ 250 mls/hr Q12H IV Last administered on 04/08/17 09:40; Start 04/08/17 at 10:00; Stop 04/08/17 at 10:15 ; Status DC Vancomycin HCl 1 each 1X ONCE MC ; Start 04/09/17 at 09:30; Stop 04/09/17 at 09 :30; Status DC Chlordiazepoxide (Librium) 25 mg Q6H PO Last administered on 04/08/17 06:07; Start 04/08/17 at 06:00; Stop 04/08/17 at 10:15; Status DC Polyethylene Glycol (miraLAX PACKET) 17 gm DAILY PO ; Start 04/09/17 at 09:00; Stop 04/09/17 at 09:00; Status DC Aspirin (Ecotrin) 81 mg DAILY PO Last administered on 04/10/17 07:45; Start at 10:30 Clotrimazole (Lotrimin) 1 karla BID TP Last administered on 04/10/17 07:46; Start 04/08/17 at 10:00 Ibuprofen (Motrin) 200 mg Q8HRS PO ; Start 04/08/17 at 14:00; Stop 04/08/17 at 14:00; Status DC Quetiapine Fumarate (SEROquel) 100 mg QHS PO Last administered on 04/09/17 21: 13; Start 04/08/17 at 21:00 Diltiazem HCl (Cardizem) 60 mg BID PO Last administered on 04/10/17 07:45; Start 04/08/17 at 10:30 Haloperidol (Haldol) 10 mg HS PO Last administered on 04/09/17 21:14; Start at 21:00 Multivitamins (Thera M Plus) 1 tab DAILY PO Last administered on 04/10/17 07: 44; Start 04/08/17 at 10:30 Thiamine Mononitrate (Vitamin B-1) 100 mg DAILY PO Last administered on 07:44; Start 04/08/17 at 10:30 Polyethylene Glycol (miraLAX PACKET) 17 gm DAILY PO Last administered on 07:45; Start 04/08/17 at 10:15 Acetaminophen/ Hydrocodone Bitart (Lortab 5/325) 1 tab PRN Q4HRS PRN PO PAIN Last administered on 04/09/17 05:02; Start 04/08/17 at 10:15; Stop 04/09/17 at 13:35; Status DC Ibuprofen (Motrin) 200 mg PRN Q8HRS PRN PO PAIN Last administered on 04/10/17 03:58; Start 04/08/17 at 10:30 Nicotine Polacrilex (Nicorette Gum) 1 each PRN Q1HR PRN BC SMOKING CESSATION Last administered on 04/10/17 07:43; Start 04/08/17 at 17:30 Al Hydroxide/Mg Hydroxide (Mylanta Plus Xs) 30 ml 1X ONCE PO Last administered on 04/08/17 18:39; Start 04/08/17 at 18:30; Stop 04/08/17 at 18:31 ; Status DC Oxycodone/ Acetaminophen (Percocet 5/325) 1 tab PRN Q4HRS PRN PO PAIN Last administered on 04/10/17 14:30; Start 04/09/17 at 13:30 Ciprofloxacin (Cipro) 500 mg BID PO Last administered on 04/10/17 10:19; Start 04/10/17 at 10:00 Oxybutynin Chloride (Ditropan) 5 mg [id number] PO Last administered on 04/10/17 14 :30; Start 04/10/17 at 14:00 Tamsulosin HCl (Flomax) 0.4 mg QHS PO ; Start 04/10/17 at 21:00 Senna/Docusate Sodium (Senna Plus) 1 tab BID PO ; Start 04/10/17 at 21:00 Docusate Sodium (Colace) 100 mg BID PO ; Start 04/10/17 at 21:00 Magnesium Hydroxide (Milk Of Magnesia) 2,400 mg PRN Q12HR PRN PO CONSTIPATION; Start 04/10/17 at 13:45 Bisacodyl (Dulcolax Supp) 10 mg PRN DAILY PRN IN CONSTIPATION; Start 04/10/17 at 13:45 Active Scripts Active Reported Cardizem Tablet (Diltiazem Hcl) 60 Mg Tablet 60 Mg PO BID Seroquel (Quetiapine Fumarate) 100 Mg Tablet 1 Tab PO QHS Haloperidol 10 Mg Tablet 1 Tab PO QHS Clotrimazole 15 Gm Cream..g. 1 Karla TP BID Multivitamins (Multivitamin) 1 Each Tablet 1 Tab PO DAILY Thiamine Hcl 100 Mg Tablet 100 Mg PO DAILY Advil (Ibuprofen) 200 Mg Tablet 200 Mg PO Q8HRS PRN Aspir 81 (Aspirin) 81 Mg Tablet. 1 Tab PO DAILY Vitals/I & O Vital Sign - Last 24 Hours 04/09/17 04/09/17 04/09/17 04/09/17 18:40 19:00 19:40 20:00 Temp 98.2 98.2 Pulse 90 Resp 18 16 18 B/P (MAP) 160/107 (124) Pulse Ox 95 95 92 O2 Delivery Room Air Room Air Room Air 04/09/17 04/09/17 04/10/17 04/10/17 21:14 22:59 03:00 07:00 Temp 98.8 100.9 97.9 98.8 100.9 97.9 Pulse 86 94 97 84 Resp 16 16 18 B/P (MAP) 153/104 160/95 (116) 134/93 (107) 133/95 (108) Pulse Ox 94 92 94 O2 Delivery Room Air Room Air Room Air 04/10/17 04/10/17 04/10/17 04/10/17 07:45 08:34 08:43 10:20 Pulse 81 B/P (MAP) 133/95 O2 Delivery Room Air Room Air Room Air 04/10/17 04/10/17 04/10/17 11:00 11:38 14:30 Temp 97.5 97.5 Pulse 96 Resp 18 B/P (MAP) 116/81 (93) Pulse Ox 95 O2 Delivery Room Air Room Air Room Air STEVIE ALMODOVAR MD Apr 10, 2017 15:25
[2017-04-10] MEDS ORDERED: hydrALAZINE 20 MG/ML VIAL. IVP PRN (15:30)
[2017-04-10] MEDS ORDERED: ONDANSETRON PF 4 MG/2 ML VIAL. IV PRN (15:30)
[2017-04-10] MEDS ORDERED: DOCUSATE SODIUM 100 MG CAPSULE. PO PRN (15:30)
[2017-04-10] MEDS ORDERED: traMADol 50 MG TABLET PO PRN (15:30)
[2017-04-10] MEDS ORDERED: MORPHINE SULFATE 2 MG/ML DISP.SYRIN. IV PRN (15:30)
[2017-04-10] MEDS ORDERED: ACETAMINOPHEN 325 MG TABLET. PO PRN (15:30)
[2017-04-10] MEDS ORDERED: BENZOCAINE/MENTHOL LOZENGE. PO PRN (16:45)
[2017-04-10] MEDS: PHENAZOPYRIDINE 200 MG TABLET. PO SCH ×2 (17:42→20:45)
[2017-04-10 19:45] VITALS: BP 152/90
[2017-04-10] MEDS: LORazepam 0.5 MG TABLET PO PRN (19:47)
[2017-04-10] MEDS: HALOPERIDOL 5 MG TABLET. PO SCH (20:44)
[2017-04-10] MEDS: QUEtiapine 100 MG TABLET. PO SCH (20:44)
[2017-04-10 20:45] VITALS: BP 152/90
[2017-04-10] MEDS ORDERED: SENNOSIDES/DOCUSATE 8.6/50MG TABLET. PO SCH (21:00)
[2017-04-10] MEDS ORDERED: TAMSULOSIN 0.4 MG CAP.ER.24H. PO SCH (21:00)
[2017-04-10] MEDS ORDERED: DOCUSATE SODIUM 100 MG CAPSULE. PO SCH (21:00)
--- NOTE | 2017-04-11 13:14 | PDOC3 ---
Discharge Summary [facility] Date of Admission: Apr 08, 2017 Discharge Date: Apr 10, 2017 Admitting Diagnosis Chills/abd pain 2/2 UTI likely,chronic cystitis vs. prostatitis ucx + MRSA Hx of ETOH abuse CONSTipation SIRS, not sepsis HTN H/O hep C BPH homecide, suicide history, from [facility] from [facility] Term h/o upper gi bleeding post EGD, no details Problems: Final Diagnosis Brief Hospital Course Mr. Matute is a 52yo OLD M, came to ER for fever, dysuria. apparently, nobody knows pt was from [facility] recently with h/o suicide, and homecide idea, and was actually transferred from [facility] for fever. Pt was treated with ceftriaxone and then i switched to cipro given ucx + MRSA on 04/10, Pt was not agitated till the policemen arrived. i I got a phone call from Cheyanne Salinas working at [facility] at 4pm on 04/10., phone number . She told me that pt has recent homocidal and suicidal behavior and was admitted to [facility] psych inpt facility recently. [facility] transferred him to and eventually came here , however, they didnot notify the court or the detention. So, i was told that 2 policemen are coming to [facility] now to watch him. i called Mary the nurse at the floor to get security risk analyst to watch him for now. but as per the nurse , the security risk analyst would not come to the floor for this and the nurse had to watch the pt till the policemen came. then i was called again by [facility] said would like to transfer to [facility] in [facility] since easy for policemen to watch him from the detention but no bed at 5pm. then pt was dced by dr. Torres at 9pm. from nurse cytology supervisor words, pt was transferred last night because they have a bed at that time. dc time 35min. General: Alert, Oriented X3, Cooperative, No acute distress Heart: Regular rate, Normal S1, Normal S2 Lungs: Clear Abdomen: Normal bowel sounds, Soft Extremities: No clubbing, No cyanosis Skin: No rashes, No breakdown Problems: Disposition hospital for detention in [facility], likely [facility] CONDITION AT DISCHARGE: Improved Diet regular Scheduled Aspirin (Aspir 81), 1 TAB PO DAILY, (Reported) Clotrimazole (Clotrimazole), 1 SANDRA TP BID, (Reported) Diltiazem Hcl (Cardizem Tablet), 60 MG PO BID, (Reported) Haloperidol (Haloperidol), 1 TAB PO QHS, (Reported) Multivitamin (Multivitamins), 1 TAB PO DAILY, (Reported) Quetiapine Fumarate (Seroquel), 1 TAB PO QHS, (Reported) Thiamine Hcl (Thiamine Hcl), 100 MG PO DAILY, (Reported) Scheduled PRN Ibuprofen (Advil), 200 MG PO Q8HRS PRN for PAIN, (Reported) Follow Up pcp uro STEVIE Padilla MD Apr 11, 2017 13:13
== END 2017-04-10 21:04 | DRG 872 ==
LOC: ER 20:32 → EEVIPCON 22:33 → 5 NORTH 22:33
PROVIDERS: ADMIT Internal Medicine Hematology & Oncology; ATTEND Internal Medicine Hematology & Oncology
DX: A41.9 Sepsis, unspecified organism (principal); D69.6 Thrombocytopenia, unspecified; E44.1 Mild protein-calorie malnutrition; N39.0 Urinary tract infection, site not specified; B19.20 Unspecified viral hepatitis C without hepatic coma; F10.20 Alcohol dependence, uncomplicated; G47.00 Insomnia, unspecified; I10 Essential (primary) hypertension; K59.00 Constipation, unspecified; M43.6 Torticollis; R79.82 Elevated C-reactive protein (CRP); N30.20 Other chronic cystitis without hematuria; N40.0 Benign prostatic hyperplasia without lower urinary tract symptoms; Z82.49 Family history of ischemic heart disease and other diseases of the circulatory system; Z83.3 Family history of diabetes mellitus; Z68.26 Body mass index [BMI] 26.0-26.9, adult
CPT/HCPCS: 36415; 70450; 71010; 74177; 80048; 80053; 80307; 81001; 82550; 83605; 83735; 83880; 84443; 84484; 85007; 85025; 85610; 85651; 85730; 86140; 87040; 87086; 87186; 87641; 87804; 93005; 96361; 96365; 96375; G0480; J0696; J1885; J2060; J2405; J3010; J3370; J3490; J7030; J7040; Q9967; 99285-25; G0479